=== PATIENT | male | born 1975 | race Caucasian/White ===

== ENCOUNTER 2023-07-25 16:48 | Emergency (ER) | payer BC, SELFPAY ==
[2023-07-25 16:56] VITALS: BP 159/94; PULSE 76; RESP 18; TEMP 36.5; O2SAT 97; BMI 27.0
--- NOTE | 2023-07-25 19:02 | ED_ITS ---
HPI - Abdominal Pain General Chief Complaint: Abdominal Pain Stated Complaint: Severe abdominal cramps all day-IBS Time Seen by Provider: 07/25/23 19:00 History of Present Illness HPI narrative: This 47-year-old male comes in reporting worsening diarrhea and abdominal cramping. He has had a history of irritable bowel syndrome but states that symptoms have become progressively worse over the past couple months. He has frequent diarrhea with severe cramps of abdominal pain. He states on occasion he has noted some blood in the diarrhea. He does not report any fevers. His pain is not constant. Currently he does not have much for pain. He did present to a gastroenterology clinic and had a colonoscopy done about 2 months ago. He has not heard any results from this but states that they did remove a couple polyps. He is not on any medications. He states that he is much worse these past couple days and has diarrhea with taking any kind of food. He does not report any nausea or vomiting. Related Data Previous Rx's Medication Instructions Recorded dicyclomine 20 mg tablet 20 mg PO QID #120 tabs 07/25/23 Allergies Allergy/AdvReac Type Severity Reaction Status Date / Time No Known Drug Allergies Allergy Verified 07/25/23 16:56 Review of Systems Status of ROS Reports: 10 or more systems reviewed and unremarkable except as noted in History and below Narrative Constitutional: No fevers, no weight gain or loss. Eyes: No discharge. No vision changes. HENT: No congestion, no sore throat, no ear pain. Cardiovascular: No chest pain, no palpitations. Respiratory: No shortness of breath, no wheezes, no cough. Gastrointestinal: Crampy abdominal pain with frequent diarrhea. Genitourinary: No dysuria, no hematuria. Musculoskeletal: Normal range of motion. Skin: No rashes, no pruritis. Neurological: No dizziness, weakness, sensory change, speech change. Endo/Heme/Allergies: No bruising or bleeding. No polydipsia. Pysch: no suicidality, no anxiety, no insomnia. All other systems reviewed and are negative. PFSH PFSH Social History Non-prescribed substance use: denies use Exam Narrative: Exam Narrative: Constitutional: Well-developed, well-nourished, no acute distress. HEENT: Normocephalic, atraumatic. Neck: Normal range of motion. Nontender. Supple. Heart: Regular. No murmurs. Normal rate. Intact distal pulses. Lungs: Clear to auscultation. No chest discomfort. No wheezes, rhonchi, or rales. Abdomen: Normal bowel sounds. Nontender. No rebound tenderness. Genitalia: Deferred. Back: No midline tenderness. Normal range of motion. Extremities: Normal range of motion. No injury. Skin: Intact. No rash. Warm. No erythema or pallor. Neurologic: No altered sensation. No weakness. Alert and oriented. Psychiatric: No suicidality. No anxiety or depression. No insomnia. Nursing notes and vitals signs are reviewed. Const: Vital Signs, click to edit/add: Vital Signs - 24 hr 07/25/23 16:56 07/25/23 19:42 07/25/23 20:35 Temperature 97.7 F Pulse Rate [Right Pulse Oximeter] 76 76 64 Respiratory Rate 18 18 18 Blood Pressure [Ri ght Upper Arm] 159/94 H 122/73 129/95 H Pulse Oximetry 97 100 95 Oxygen Delivery Me thod Room Air Room Air Room Air Course Vital Signs Vital signs: Initial Vital Signs Temperature 97.7 F 07/25/23 16:56 Temperature Source Temporal Artery Scan 07/25/23 16:56 Pulse Rate 76 07/25/23 16:56 Respiratory Rate 18 07/25/23 16:56 Blood Pressure 159/94 H 07/25/23 16:56 Blood Pressure Mean 115 H 07/25/23 16:56 Blood Pressure Position Sitting 07/25/23 16:56 Pulse Oximetry 97 07/25/23 16:56 Oxygen Delivery Method Room Air 07/25/23 16:56 Vital Signs Temperature 97.7 F 07/25/23 16:56 Pulse Rate 76 07/25/23 16:56 Respiratory Rate 18 07/25/23 16:56 Blood Pressure 159/94 H 07/25/23 16:56 Pulse Oximetry 97 07/25/23 16:56 Oxygen Delivery Method Room Air 07/25/23 16:56 Temperature 97.7 F 07/25/23 16:56 Pulse Rate 64 07/25/23 20:35 Respiratory Rate 18 07/25/23 20:35 Blood Pressure 129/95 H 07/25/23 20:35 Pulse Oximetry 95 07/25/23 20:35 Oxygen Delivery Method Room Air 07/25/23 20:35 MDM - Abdominal Pain MDM Narrative Medical decision making narrative: This patient comes in with abdominal pain and frequent diarrhea as described above. He does have a history of irritable bowel syndrome and states that these symptoms are similar but occurring much more frequently and with more intensity. He is not on any medications to treat this. He denies having any fevers or signs of infection. An IV is established and labs are acquired. These returned with normal findings. Additionally a CT scan of the abdomen pelvis returns with no significant findings to explain his symptoms. He did receive IV dose Toradol 30 mg and a L of normal saline. This helped him feel better. His symptoms are likely due to irritable bowel syndrome. I did prescribe dicyclomine 20 mg 4 times daily to help with his diarrhea. He also received a prescription for Toradol from the [facility]. He has seen a novelties sales representative and is advised to follow-up for ongoing management. Lab Data Labs: Lab Results 07/25/23 Range/Units 19:25 WBC 7.43 (4.50-11.00) K/uL RBC 5.17 (4.30-5.90) m/uL Hgb 14.5 (13.5-17.5) gm/dL Hct 44.7 (37.0-53.0) % MCV 87 (80-100) fL MCH 28 (26-34) pg MCHC 32 (32-36) gm/dL RDW Coeff of Rosalee 13.3 (11.5-15.5) % Plt Count 279 (140-440) K/uL Neut % (Auto) 69.4 (42.0-72.0) % Lymph % (Auto) 21.8 (20-44) % [place] % (Auto) 6.9 (0.0-11.0) % Eos % (Auto) 1.1 (0.0-7.0) % Baso % (Auto) 0.5 (0.0-3.0) % Neut # (Auto) 5.16 (1.7-7.0) K/uL Lymph # (Auto) 1.62 (0.90-2.90) K/uL [place] # (Auto) 0.50 (0.00-0.90) K/UL Eos # (Auto) 0.08 (0.00-0.50) K/uL Baso # (Auto) 0.04 (0.00-0.30) K/uL Abs Immat Gran (auto) 0.02 (0.00-0.30) K/uL Imm/Tot Granulo (auto) 0.3 % ESR 7 (2-15) mm/hr Sodium 140 (135-149) mmol/L Potassium 3.5 L (3.6-5.1) mmol/L Chloride 104 (96-114) mmol/L Carbon Dioxide 27 (20-32) mmol/L Anion Gap 9 (7-15) mEq/L BUN 10 (5-24) mg/dL Creatinine 0.8 (0.5-1.5) mg/dL Estimated Creat Clear 104.12 Estimated GFR 111 ml/min Glucose 103 (60-115) mg/dL Calcium 9.0 (8.4-10.6) mg/dL Total Bilirubin 1.3 (0.1-1.5) mg/dL Direct Bilirubin 0.0 (0.0-0.5) mg/dL AST 37 H (12-35) U/L ALT 47 (4-50) U/L Alkaline Phosphatase 77 (40-150) U/L C-Reactive Protein 0.6 (0.5-1.0) mg/dL Total Protein 7.4 (6.0-8.3) g/dL Albumin 4.5 (3.3-5.0) g/dL Imaging Data CT scan - abdomen: Radiologist's impression: 1. No acute findings in the abdomen or pelvis. 2. Moderate amount of formed stool in the proximal colon. No signs of bowel obstruction or inflammation. Discharge Plan Discharge Clinical Impression: IBS (irritable bowel syndrome) Patient Disposition: Home, Self-Care Condition: Stable Additional Instructions: Take medication as prescribed. Increase diet and liquids as tolerated. Follow up with MD, Gastroenterology Clinic, as scheduled or needed. Return if worsening. Prescriptions: New dicyclomine 20 mg tablet 20 mg PO QID Qty: 120 2RF Follow Up/Referrals: Provider,Not a Local [Primary Care Provider] - Stand Alone Forms: [employer] Info Instructions
--- NOTE | 2023-07-25 19:12 | CRLHL7_ITS ---
For Patients: As a result of the Century Cures Act, medical imaging exams and procedure reports are released immediately into your electronic medical record. You may view this report before your referring provider. If you have questions, please contact your health care provider. INDICATION: Abdominal pain, diarrhea. TECHNIQUE: CT of the abdomen and pelvis with 82 cc Isovue 370 IV contrast. Coronal and sagittal reconstructions. COMPARISON: None. FINDINGS: Probable hepatic steatosis. There is a subcentimeter lesion in the right hepatic dome with peripheral nodular enhancing foci compatible with a benign hemangioma (series 2, image 13). The gallbladder, spleen, pancreas, and adrenal glands are negative. No biliary dilation. Portal veins appear patent. Symmetric enhancement of the kidneys. No hydronephrosis or ureteral dilation. No obstructing urinary calculi identified. The bladder is normal in appearance. Nonenlarged prostate gland. No small bowel dilation. Moderate amount of formed stool in the proximal colon. The distal colon is decompressed. No signs of bowel inflammation. Negative appendix. No intraperitoneal free air or fluid. No lymphadenopathy. Tiny fat containing umbilical hernia. Elevation of the right hemidiaphragm. Mild bibasilar atelectasis. Mild degenerative changes of the spine. Schmorl`s node in the superior endplate of L1. IMPRESSION: 1. No acute findings in the abdomen or pelvis. 2. Moderate amount of formed stool in the proximal colon. No signs of bowel obstruction or inflammation. Please note that all CT scans at this facility use dose modulation, iterative reconstruction, and/or weight-based dosing when appropriate to reduce radiation dose to as low as reasonably achievable. Dictated by Akiko Pastor MD @ 07/25/2023 8:48:45 PM (Electronically Signed)
[2023-07-25 19:29] LABS: Basophils Absolute Auto 0.04 K/uL (0.00-0.30); Basophils Percent Auto 0.5 % (0.0-3.0); Eosinophils Absolute Auto 0.08 K/uL (0.00-0.50); Eosinophils Percent Auto 1.1 % (0.0-7.0); Hematocrit 44.7 % (37.0-53.0); Hemoglobin* 14.5 gm/dL (13.5-17.5); Immature Granulocytes Abs Auto 0.02 K/uL (0.00-0.30); Immature Granulocytes Pct Auto 0.3 %; Lymphocytes Absolute Auto 1.62 K/uL (0.90-2.90); Lymphocytes Percent Auto 21.8 % (20-44); Mean Corpuscular HGB Conc 32 gm/dL (32-36); Mean Corpuscular Hemoglobin 28 pg (26-34); Mean Corpuscular Volume 87 fL (80-100); Monocytes Percent Auto 6.9 % (0.0-11.0); Neutrophils Absolute Auto 5.16 K/uL (1.7-7.0); Neutrophils Percent Auto 69.4 % (42.0-72.0); Platelet Count* 279 K/uL (140-440); RDW Coefficient of Variation % 13.3 % (11.5-15.5); Red Blood Count 5.17 m/uL (4.30-5.90); White Blood Count* 7.43 K/uL (4.50-11.00)
[2023-07-25 19:30] LABS: Slide Review Reflex No
[2023-07-25 19:42] VITALS: BP 122/73; PULSE 76; RESP 18; O2SAT 100
[2023-07-25 19:44] LABS: Albumin* 4.5 g/dL (3.3-5.0); Chloride* 104 mmol/L (96-114)
[2023-07-25 19:45] LABS: Potassium* 3.5 mmol/L (3.6-5.1); Sodium* 140 mmol/L (135-149)
[2023-07-25 19:47] LABS: Creatinine* 0.8 mg/dL (0.5-1.5); Est. Creatinine Clearance* 104.12; Estimated Glomerular Filt Rate 111 ml/min
[2023-07-25 19:48] LABS: Alanine Aminotransferase* 47 U/L (4-50); Alkaline Phosphatase* 77 U/L (40-150); Anion Gap 9 mEq/L (7-15); Aspartate Amino Transferase* 37 U/L (12-35); Bilirubin Total* 1.3 mg/dL (0.1-1.5); Blood Urea Nitrogen* 10 mg/dL (5-24); Carbon Dioxide* 27 mmol/L (20-32); Glucose* 103 mg/dL (60-115); Total Protein* 7.4 g/dL (6.0-8.3)
[2023-07-25 19:50] LABS: C Reactive Protein* 0.6 mg/dL (0.5-1.0)
[2023-07-25 20:21] LABS: Erythrocyte SedimentationRate* 7 mm/hr (2-15)
[2023-07-25 20:35] VITALS: BP 129/95; PULSE 64; RESP 18; O2SAT 95
== END 2023-07-25 21:46 | disposition home or self-care (01) ==
PROVIDERS: Emergency Provider Emergency Medicine Emergency Medical Services
DX: K58.9 Irritable bowel syndrome, unspecified (principal)
CPT/HCPCS: 36415; 74177; 80048; 80076; 85025; 85651; 86140; 96374; 99284; 99285; Q9967

== ENCOUNTER 2025-06-23 07:14 | Emergency (ER) | payer BC, SELFPAY ==
[2025-06-23] VITALS (10 sets, daily range): BP systolic 144–192; BP diastolic 90–98; PULSE 53–64; RESP 14–23; TEMP 35.8; O2SAT 96–100; BMI 26.6
--- NOTE | 2025-06-23 07:39 | CRLHL7_ITS ---
For Patients: As a result of the Century Cures Act, medical imaging exams and procedure reports are released immediately into your electronic medical record. You may view this report before your referring provider. If you have questions, please contact your health care provider. Indication: Chest pain Technique: Chest 2 views Comparison: Chest x-ray 06/13/2010 Findings/Impression: Cardiovascular and mediastinum: Heart size and vasculature are normal in caliber and appearance. Mediastinum is within normal limits. Lungs and pleural spaces: Lungs are clear. No sign of infiltrate or mass. No sign of pleural effusion. No pneumothorax. Bones and soft tissues: No significant findings. Dictated by Bruno Santoyo MD @ 06/23/2025 8:24:50 AM (Electronically Signed)
--- NOTE | 2025-06-23 07:42 | ED_ITS ---
HPI - General Adult General Date Seen: 06/23/25 <nAtonio Childers MD - Last Filed: 06/23/25 10:55> Chief complaint: Chest Pain <Nirali Patino MD - Last Filed: 06/29/25 23:58> Stated complaint: chest pain <Nirali Patino MD - Last Filed: 06/29/25 23:58> Time Seen by Provider: 06/23/25 07:27 <Nirali Patino MD - Last Filed: 06/29/25 23:58> Source: patient <Nirali Patino MD - Last Filed: 06/29/25 23:58> Mode of arrival: ambulatory <Nirali Patino MD - Last Filed: 06/29/25 23:58> Limitations: no limitations <Nirali Patino MD - Last Filed: 06/29/25 23:58> History of Present Illness HPI narrative: 49-year-old male presents to the emergency department with left lateral lower rib pain, anterior but does radiate laterally for the past hour. No trauma or injury. No shortness of breath or cough but does have worsening pain with deep breath. No recent fever. No dysuria. Pain seems to come in waves. No nausea or vomiting. No GI changes. No bloody stools. No history of kidney stones. Reports that he had a similar pain several months ago that lasted just a couple of minutes and resolved without complication, was not investigated further. 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 It sounds like he was not recommended to have follow-up echoes or cardiology evaluation for this. He does not typically have chest pain or other limiting problems. No history of DVT or PE. Reports that he had some mild achiness in his right thigh last night and took a couple of Tylenol, resolved without complication. No swelling has been noted. No prior stress test or recent echo. Nonsmoker. Did not try any interventions prior to coming to ED. Past medical history notable for that cardiac surgery as an , denies other long-term medications or long-term medical problems. No other surgeries. No known drug allergies. ROS is notable for the chest wall symptoms as described above, otherwise denies times 12 systems. <Nirali Patino MD - Last Filed: 06/29/25 23:58> Related Data Home medications: Home Medications ?Medication ?Instructions ?Recorded ?Confirmed No Known Home Medications 06/23/2506/03 <Nirali Patino MD - Last Filed: 06/29/25 23:58> Allergies/adverse reactions: Allergies Allergy/AdvReac Type Severity Reaction Status Date / Time No Known Drug Allergies Allergy Verified 07/25/23 16:56 <Nirali Patino MD - Last Filed: 06/29/25 23:58> PFSH PFSH Social History: Social History Smoking Status: Never smoker Non-prescribed substance use: denies use <Nirali Patino MD - Last Filed: 06/29/25 23:58> Exam Const: Vital Signs, click to edit/add: Vital Signs - 24 hr 06/23/25 07:20 06/23/25 07:30 06/23/25 07:45 Temperature 96.4 F L Pulse Rate 63 Pulse Rate [Pulse Oximeter] 60 Respiratory Rate 18 22 Blood Pressure Blood Pressure [Le ft Upper Arm] 192/98 H 157/90 H Pulse Oximetry 100 97 Oxygen Delivery Me thod Room Air 06/23/25 08:01 06/23/25 08:31 06/23/25 09:00 Temperature Pulse Rate 64 57 L Pulse Rate [Pulse Oximeter] Respiratory Rate 15 21 20 Blood Pressure 161/96 H 147/97 H Blood Pressure [Le ft Upper Arm] Pulse Oximetry 96 97 Oxygen Delivery Me thod 06/23/25 09:01 06/23/25 09:15 06/23/25 09:35 Temperature Pulse Rate 54 L 53 L 54 L Pulse Rate [Pulse Oximeter] Respiratory Rate 23 14 Blood Pressure 144/92 H Blood Pressure [Le ft Upper Arm] Pulse Oximetry 97 96 97 Oxygen Delivery Me thod 06/23/25 10:00 Temperature Pulse Rate 53 L Pulse Rate [Pulse Oximeter] Respiratory Rate 19 Blood Pressure Blood Pressure [Le ft Upper Arm] Pulse Oximetry 97 Oxygen Delivery Me thod <Nirali Patino MD - Last Filed: 06/29/25 23:58> Vital Signs, click to edit/add: Vital Signs - 24 hr 06/23/25 07:20 06/23/25 07:30 06/23/25 07:45 Temperature 96.4 F L Pulse Rate 63 Pulse Rate [Pulse Oximeter] 60 Respiratory Rate 18 22 Blood Pressure Blood Pressure [Le ft Upper Arm] 192/98 H 157/90 H Pulse Oximetry 100 97 Oxygen Delivery Me thod Room Air 06/23/25 08:01 06/23/25 08:31 06/23/25 09:00 Temperature Pulse Rate 64 57 L Pulse Rate [Pulse Oximeter] Respiratory Rate 15 21 20 Blood Pressure 161/96 H 147/97 H Blood Pressure [Le ft Upper Arm] Pulse Oximetry 96 97 Oxygen Delivery Me thod 06/23/25 09:01 06/23/25 09:15 06/23/25 09:35 Temperature Pulse Rate 54 L 53 L 54 L Pulse Rate [Pulse Oximeter] Respiratory Rate 23 14 Blood Pressure 144/92 H Blood Pressure [Le ft Upper Arm] Pulse Oximetry 97 96 97 Oxygen Delivery Me thod 06/23/25 10:00 Temperature Pulse Rate 53 L Pulse Rate [Pulse Oximeter] Respiratory Rate 19 Blood Pressure Blood Pressure [Le ft Upper Arm] Pulse Oximetry 97 Oxygen Delivery Me thod <Antonio Childers MD - Last Filed: 06/23/25 10:55> Documenting provider has reviewed patient's vital signs: yes <Nirali Patino MD - Last Filed: 06/29/25 23:58> Common normals: no apparent distress and alert <Nirali Patino MD - Last Filed: 06/29/25 23:58> General appearance: cooperative, comfortable and well kempt <Nirali Patino MD - Last Filed: 06/29/25 23:58> HENMT: Common normals: normocephalic, moist oral mucous membranes and oropharynx normal <Nirali Patino MD - Last Filed: 06/29/25 23:58> Head and scalp: normocephalic <Nirali Patino MD - Last Filed: 06/29/25 23:58> Face and sinus: normal facial exam <Nirali Patino MD - Last Filed: 06/29/25 23:58> Mouth: oral and palatal mucosa normal <MD Gulshan Estrada Last Filed: 06/29/25 23:58> Eye: Common normals: conjunctivae normal <MD Gulshan Estrada Last Filed: 06/29/25 23:58> General eye: normal appearance of both eyes <MD Gulshan Estrada Last Filed: 06/29/25 23:58> Conjunctiva: conjunctiva(e) normal <MD Gulshan Estrada Last Filed: 06/29/25 23:58> Neck & C-Spine: Common normals: full ROM and no lymphadenopathy <MD Gulshan Estrada Last Filed: 06/29/25 23:58> Chest: Common normals: inspection of chest normal and palpation of chest norm al <MD Gulshan Estrada Last Filed: 06/29/25 23:58> Resp: Common normals: normal respiratory effort, no use of accessory muscles and clear to auscultation bilaterally <MD Gulshan Estrada Last Filed: 06/29/25 23:58> Effort & inspection: able to speak in complete sentences <MD Gulshan Estrada Last Filed: 06/29/25 23:58> Auscultation: clear to auscultation bilaterally <MD Gulshan Estrada Last Filed: 06/29/25 23:58> Cardio: Common normals: regular rate, regular rhythm, S1 normal heart sound, S2 normal heart sound and no murmurs <MD Gulshan Estrada Last Filed: 06/29/25 23:58> Rate: regular rate <MD Gulshan Estrada Last Filed: 06/29/25 23:58> Rhythm: regular rhythm <MD Gulshan Estrada Last Filed: 06/29/25 23:58> Heart sounds: S1 normal and S2 normal <MD Gulshan Estrada Last Filed: 06/29/25 23:58> GI: Common normals: Normal to inspection, nondistended, normoactive bowel sounds present, soft to palpation, non-tender, no hepatosplenomegaly and no masses <MD Gulshan Estrada Last Filed: 06/29/25 23:58> Palpation: soft and no hepatosplenomegaly <MD Gulshan Estrada Last Filed: 06/29/25 23:58> : Common normals: no CVA tenderness <MD Gulshan Estrada Last Filed: 06/29/25 23:58> Bladder/kidney exam: no CVA tenderness <MD Gulshan Estrada Last Filed: 06/29/25 23:58> Back & Pelvis: Common normals: no CVA tenderness and thoracic and lumbar spine normal to inspection <MD Gulshan Estrada Last Filed: 06/29/25 23:58> Extremity: Common normals: normal to inspection, normal capillary refill and no pedal edema <MD Gulshan Estrada Last Filed: 06/29/25 23:58> Neuro: Common normals: moves all extremities <MD Gulshan Estrada Last Filed: 06/29/25 23:58> Sensorium/orientation: alert <MD Gulshan Estrada Last Filed: 06/29/25 23:58> Speech: speech normal <MD Gulshan Estrada Last Filed: 06/29/25 23:58> Motor exam: strength 5/5 throughout <MD Gulshan Estrada Last Filed: 06/29/25 23:58> Psych: Appearance: well kempt <MD Gulshan Estrada Last Filed: 06/29/25 23:58> Attitude: engaged <MD Gulshan Estrada Last Filed: 06/29/25 23:58> Activity/motor behavior: appropriate eye contact <MD Gulshan Estrada Last Filed: 06/29/25 23:58> Insight: insight good <MD Gulshan Estrada Last Filed: 06/29/25 23:58> Judgement: judgment good <MD Gulshan Estrada Last Filed: 06/29/25 23:58> Skin: Common normals: no rashes or lesions noted <Nirali Patino MD - Last Filed: 06/29/25 23:58> General skin exam: no rashes or lesions noted <Nirali Patino MD - Last Filed: 06/29/25 23:58> Course Course ED Course: 49-year-old male with left-sided chest pain. Initial vitals show some mild hypertension but otherwise stable. Differential diagnosis including acute coronary syndrome, pulmonary embolism, heart failure, pleurisy, pneumonia, kidney stone or intra-abdominal pathology, amongst others. Will place on color television console monitor, obtain urine sample, EKG. Typical cardiac labs including a D- dimer, chest x-ray. No initial treatments. Await findings. Will be handing over care to oncoming day shift partner. <Nirali Patino MD - Last Filed: 06/29/25 23:58> Reevaluation(s) Time of Reevaluation #1: 10:53 <Antonio Childers MD - Last Filed: 06/23/25 10:55> Reevaluation #1: Chest pain is gone away, I reviewed the the history, physical examination, patient feels good, EKG had noted his troponins x2 are normal D-dimer was normal. He says he had this in the past, he does not get with exercise tolerance, but given his age and history a stress echo is ordered, he will remain on 81 mg of aspirin until the stress echo was done. He will follow-up with his doctor within the week, he reports he understands this, went over worrisome signs and symptoms when he should come back to the ER, his is also part of this conversation. <Antonio Childers MD - Last Filed: 06/23/25 10:55> Vital Signs Vital signs: Initial Vital Signs Temperature 96.4 F L 06/23/25 07:20 Temperature Source Temporal Artery Scan 06/23/25 07:20 Pulse Rate 60 06/23/25 07:20 Respiratory Rate 18 06/23/25 07:20 Blood Pressure 192/98 H 06/23/25 07:20 Blood Pressure Mean 129 H 06/23/25 07:20 Blood Pressure Position Supine 06/23/25 07:20 Pulse Oximetry 100 06/23/25 07:20 Oxygen Delivery Method Room Air 06/23/25 07:20 Vital Signs Temperature 96.4 F L 06/23/25 07:20 Pulse Rate 60 06/23/25 07:20 Respiratory Rate 18 06/23/25 07:20 Blood Pressure 192/98 H 06/23/25 07:20 Pulse Oximetry 100 06/23/25 07:20 Oxygen Delivery Method Room Air 06/23/25 07:20 Temperature 96.4 F L 06/23/25 07:20 Pulse Rate 53 L 06/23/25 10:00 Respiratory Rate 19 06/23/25 10:00 Blood Pressure 144/92 H 06/23/25 09:01 Pulse Oximetry 97 06/23/25 10:00 Oxygen Delivery Method Room Air 06/23/25 07:20 <Nirali Patino MD - Last Filed: 06/29/25 23:58> Initial Vital Signs Temperature 96.4 F L 06/23/25 07:20 Temperature Source Temporal Artery Scan 06/23/25 07:20 Pulse Rate 60 06/23/25 07:20 Respiratory Rate 18 06/23/25 07:20 Blood Pressure 192/98 H 06/23/25 07:20 Blood Pressure Mean 129 H 06/23/25 07:20 Blood Pressure Position Supine 06/23/25 07:20 Pulse Oximetry 100 06/23/25 07:20 Oxygen Delivery Method Room Air 06/23/25 07:20 Vital Signs Temperature 96.4 F L 06/23/25 07:20 Pulse Rate 60 06/23/25 07:20 Respiratory Rate 18 06/23/25 07:20 Blood Pressure 192/98 H 06/23/25 07:20 Pulse Oximetry 100 06/23/25 07:20 Oxygen Delivery Method Room Air 06/23/25 07:20 Temperature 96.4 F L 06/23/25 07:20 Pulse Rate 53 L 06/23/25 10:00 Respiratory Rate 19 06/23/25 10:00 Blood Pressure 144/92 H 06/23/25 09:01 Pulse Oximetry 97 06/23/25 10:00 Oxygen Delivery Method Room Air 06/23/25 07:20 <Antonio Childers MD - Last Filed: 06/23/25 10:55> Medical Decision Making MDM Narrative Medical decision making narrative: During the evaluation of this patient I considered multiple differential diagnosis is. The life-threatening differential diagnosis include coronary disease/PR, pulmonary embolism, pneumothorax, pneumonia, and aortic dissection. Other differential diagnosis included but were not limited to pericarditis, myocarditis, chest wall pain, GERD, esophageal rupture, rib fracture contusion, pleurisy, as well as other etiologies. <Antonio Childers MD - Last Filed: 06/23/25 10:55> Medical Records Medical records reviewed: Yes I reviewed the patient's medical records <Antonio Childers MD - Last Filed: 06/23/25 10:55> Lab Data Lab results reviewed: Yes I reviewed the patient's lab results <Antonio Childers MD - Last Filed: 06/23/25 10:55> Labs: Lab Results 06/23/25 06/23/25 06/23/25 Range/Units 07:30 07:39 09:30 WBC 6.85 (4.50-11.00) K/uL RBC 5.36 (4.30-5.90) m/uL Hgb 15.2 (13.5-17.5) gm/dL Hct 45.7 (37.0-53.0) % MCV 85 (80-100) fL MCH 28 (26-34) pg MCHC 33 (32-36) gm/dL RDW Coeff of [place] 13.3 (11.5-15.5) % Plt Count 277 (140-440) K/uL Neut % (Auto) 61.8 (42.0-72.0) % Lymph % (Auto) 26.3 (20-44) % [place] % (Auto) 9.1 (0.0-11.0) % Eos % (Auto) 2.0 (0.0-7.0) % Baso % (Auto) 0.7 (0.0-3.0) % Neut # (Auto) 4.23 (1.7-7.0) K/uL Lymph # (Auto) 1.80 (0.90-2.90) K/uL [place] # (Auto) 0.60 (0.00-0.90) K/UL Eos # (Auto) 0.14 (0.00-0.50) K/uL Baso # (Auto) 0.05 (0.00-0.30) K/uL Abs Immat Gran (auto) 0.01 (0.00-0.30) K/uL Imm/Tot Granulo (auto) 0.1 % D-Dimer Quant (PE/DVT) 0.11 (0.00-0.50) ug/ml Sodium 139 (135-149) mmol/L Potassium 3.8 (3.6-5.1) mmol/L Chloride 107 (96-114) mmol/L Carbon Dioxide 25 (20-32) mmol/L Anion Gap 7 (7-15) mEq/L BUN 14 (5-24) mg/dL Creatinine 0.9 (0.5-1.5) mg/dL Estimated Creat Clear 90.58 Estimated GFR 105 ml/min Glucose 136 H (60-115) mg/dL Calcium 9.2 (8.4-10.6) mg/dL Total Bilirubin 0.8 (0.1-1.5) mg/dL AST 27 (12-35) U/L ALT 37 (4-50) U/L Alkaline Phosphatase 78 (40-150) U/L Troponin I < 0.01 (0.01-0.04) ng/mL NT-Pro-B Natriuret Pep < 20 (See Note) pg/mL Total Protein 7.0 (6.0-8.3) g/dL Albumin 4.2 (3.3-5.0) g/dL Lipase 141 (23-300) U/L Urine Color Yellow (Yellow) Urine Appearance Clear (Clear) Urine pH 6.5 (5.0-8.5) Ur Specific [place] 1.025 (1.000-1.030) Urine Protein 1+ A (Negative) Urine Glucose (UA) Negative (Negative) Urine Ketones 1+ A (Negative) Urine Blood Trace-intact A (Negative) Urine Nitrite Negative (Negative) Urine Bilirubin Negative (Negative) Urine Urobilinogen 1.0 (0.2-1.0) Ur Leukocyte Esterase Negative (Negative) Urine RBC 2-5 A (0-2) Urine WBC 0-2 (0-5) Ur Squamous Epith Cells Few (None-Few) Urine Bacteria None (None) Urine Mucus Moderate A (None) POC Troponin I 0.00 L 0.00 L (0.01-0.04) ng/ml <Nirali Patino MD - Last Filed: 06/29/25 23:58> Lab Results 06/23/25 06/23/25 06/23/25 Range/Units 07:30 07:39 09:30 WBC 6.85 (4.50-11.00) K/uL RBC 5.36 (4.30-5.90) m/uL Hgb 15.2 (13.5-17.5) gm/dL Hct 45.7 (37.0-53.0) % MCV 85 (80-100) fL MCH 28 (26-34) pg MCHC 33 (32-36) gm/dL RDW Coeff of [place] 13.3 (11.5-15.5) % Plt Count 277 (140-440) K/uL Neut % (Auto) 61.8 (42.0-72.0) % Lymph % (Auto) 26.3 (20-44) % [place] % (Auto) 9.1 (0.0-11.0) % Eos % (Auto) 2.0 (0.0-7.0) % Baso % (Auto) 0.7 (0.0-3.0) % Neut # (Auto) 4.23 (1.7-7.0) K/uL Lymph # (Auto) 1.80 (0.90-2.90) K/uL [place] # (Auto) 0.60 (0.00-0.90) K/UL Eos # (Auto) 0.14 (0.00-0.50) K/uL Baso # (Auto) 0.05 (0.00-0.30) K/uL Abs Immat Gran (auto) 0.01 (0.00-0.30) K/uL Imm/Tot Granulo (auto) 0.1 % D-Dimer Quant (PE/DVT) 0.11 (0.00-0.50) ug/ml Sodium 139 (135-149) mmol/L Potassium 3.8 (3.6-5.1) mmol/L Chloride 107 (96-114) mmol/L Carbon Dioxide 25 (20-32) mmol/L Anion Gap 7 (7-15) mEq/L BUN 14 (5-24) mg/dL Creatinine 0.9 (0.5-1.5) mg/dL Estimated Creat Clear 90.58 Estimated GFR 105 ml/min Glucose 136 H (60-115) mg/dL Calcium 9.2 (8.4-10.6) mg/dL Total Bilirubin 0.8 (0.1-1.5) mg/dL AST 27 (12-35) U/L ALT 37 (4-50) U/L Alkaline Phosphatase 78 (40-150) U/L Troponin I < 0.01 (0.01-0.04) ng/mL NT-Pro-B Natriuret Pep < 20 (See Note) pg/mL Total Protein 7.0 (6.0-8.3) g/dL Albumin 4.2 (3.3-5.0) g/dL Lipase 141 (23-300) U/L Urine Color Yellow (Yellow) Urine Appearance Clear (Clear) Urine pH 6.5 (5.0-8.5) Ur Specific [place] 1.025 (1.000-1.030) Urine Protein 1+ A (Negative) Urine Glucose (UA) Negative (Negative) Urine Ketones 1+ A (Negative) Urine Blood Trace-intact A (Negative) Urine Nitrite Negative (Negative) Urine Bilirubin Negative (Negative) Urine Urobilinogen 1.0 (0.2-1.0) Ur Leukocyte Esterase Negative (Negative) Urine RBC 2-5 A (0-2) Urine WBC 0-2 (0-5) Ur Squamous Epith Cells Few (None-Few) Urine Bacteria None (None) Urine Mucus Moderate A (None) POC Troponin I 0.00 L 0.00 L (0.01-0.04) ng/ml <Antonio Childers MD - Last Filed: 06/23/25 10:55> Imaging Data Chest x-ray: Attestation: I have reviewed the pertinent imaging results. <Antonio Childers MD - Last Filed: 06/23/25 10:55> My impression: Negative <Antonio Childers MD - Last Filed: 06/23/25 10:55> Radiologist's impression: [place] [address] Diagnostic Imaging Report Patient: Jhonny Riddle MR#: [id number] : 1975 Acct:[id number] Loc: ED Service Date: 06/23/[address]: Ordering Physician: Nirali Patino M.D. Date of Service: 06/23/25 Procedure(s): XR chest 2V Accession Number(s): [id number] cc: Provider,Not a Local; Nirali Patino M.D.~ For Patients: As a result of the Cures Act, medical imaging exams and procedure reports are released immediately into your electronic medical record. You may view this report before your referring provider. If you have questions, please contact your health care provider. Indication: Chest pain Technique: Chest 2 views Comparison: Chest x-ray 06/13/2010 Findings/Impression: Cardiovascular and mediastinum: Heart size and vasculature are normal in caliber and appearance. Mediastinum is within normal limits. Lungs and pleural spaces: Lungs are clear. No sign of infiltrate or mass. No sign of pleural effusion. No pneumothorax. Bones and soft tissues: No significant findings. Dictated by Bruno Santoyo MD @ 06/23/2025 8:24:50 AM (Electronically Signed) <Antonio Childers MD - Last Filed: 06/23/25 10:55> ECG Data Attestation: I personally reviewed and interpreted this ECG as follows: <Nirali Patino MD - Last Filed: 06/29/25 23:58> Prior ECG tracings: not available for review <Nirali Patino MD - Last Filed: 06/29/25 23:58> Interpretation: Sinus bradycardia with a rate of 55. There is a slight left axis deviation. Intervals are otherwise normal. No significant ST or T-wave abnormalities that was suggest ischemia. No prior EKG for comparison. <Nirali Patino MD - Last Filed: 06/29/25 23:58> Discharge Plan Discharge Clinical Impression: Chest pain <Nirali Patino MD - Last Filed: 06/29/25 23:58> Patient Disposition: Home w/ Parent or Adult <Nirali Patino MD - Last Filed: 06/29/25 23:58> Condition: Stable <Nirali Patino MD - Last Filed: 06/29/25 23:58> Instructions: Chest Pain (ED), Chest Pain (DC), Chest Wall Pain (ED) <Nirali Patino MD - Last Filed: 06/29/25 23:58> Additional Instructions: Home rest, decreasing exercise, decreasing activity. Taking aspirin 81 mg a day. Follow-up for outpatient stress echo, follow-up with primary care within 1 week also return to ER if increasing chest pain shortness of breath or other concerns. <Nirali Patino MD - Last Filed: 06/29/25 23:58> Activity Level: Light activity <Nirali Patino MD - Last Filed: 06/29/25 23:58> Light activity <Antonio Childers MD - Last Filed: 06/23/25 10:55> Prescriptions: No Action No Known Home Medications <Nirali Patino MD - Last Filed: 06/29/25 23:58> Follow Up/Referrals: Provider,Not a Local [Primary Care Provider, Family Practice] <Nirali Patino MD - Last Filed: 06/29/25 23:58> Stand Alone Forms: MyHealth Info Instructions <Nirali Patino MD - Last Filed: 06/29/25 23:58>
[2025-06-23 07:48] LABS: Appearance Urine Clear (Clear)
[2025-06-23 07:50] LABS: Troponin, Point-of-Care* 0.00 ng/ml (0.01-0.04)
[2025-06-23 07:51] LABS: Hematocrit* 45.7 % (37.0-53.0); Hemoglobin* 15.2 gm/dL (13.5-17.5); Immature Granulocytes Abs Auto 0.01 K/uL (0.00-0.30); Immature Granulocytes Pct Auto 0.1 %; Lymphocytes Absolute Auto 1.80 K/uL (0.90-2.90); Mean Corpuscular HGB Conc 33 gm/dL (32-36); Mean Corpuscular Hemoglobin 28 pg (26-34); Mean Corpuscular Volume 85 fL (80-100); RDW Coefficient of Variation % 13.3 % (11.5-15.5); Red Blood Count* 5.36 m/uL (4.30-5.90); White Blood Count* 6.85 K/uL (4.50-11.00)
[2025-06-23 07:54] LABS: Slide Review Reflex No
--- OUTSIDE RECORDS SUMMARY | 2025-06-23 08:01 | XMS_ITS | Clinical Summary ---
Author Organization [facility] Address [address] [place] [id number] Care Team Providers Care Contact Printer [employer] Name Role Phone Alvaro, Vandana Bhattiton Primary Care Provider Allergies No known active allergies Medications predniSONE (DELTASONE) 20 MG tablet Take two tablets (= 40mg) each day for 5 (five) days 10 tablet 07/14/2020 Active Social History Tobacco Use Types Packs/Day Years Used Date Smoking Tobacco: Never Assessed Adolescent Education Answer Date Record ed Getting School Help Needed Not on file 07/09 Sex and Gender Information Value Date Recorded Sex Assigned at Male 11/27/2021 4:12 PM [employer] Legal Sex Male 4:02 AM [employer] Gender Identity Male 11/27/2021 4:12 PM [employer] Sexual Orientation Straight 11/27/2021 4: 12 PM [employer] Last Filed Vital Signs Vital Sign Reading Time Taken Comments Blood Pressure 154/113 07/14/2020 4:58 PM CDT Pulse 79 07/14/2020 4:58 PM CDT Temperature 36.7 C (98 F) 07/14/2020 4:58 PM CDT Respiratory Rate 20 07/14/2020 4:58 PM CDT Oxygen Saturation 99% 07/14/2020 4:58 PM CDT Inhaled Oxygen Concentration - - Weight 72.1 kg (159 lb) 07/14/2020 4:58 PM CDT Height - - Body Mass Index - - Plan of Treatment Not on file Insurance BCBS OUT OF STATE Care Teams Contact Printer [employer] Relationship Specialty Start Date End Date [facility], [facility] [id number] [address] [place], [place] [id number] PCP - General 07/14/20
--- OUTSIDE RECORDS SUMMARY | 2025-06-23 08:01 | XMS_ITS | Clinical Summary ---
Author Organization [employer] [facility] Address [address] [place] [id number] Care Team Providers Care Columnist/Commentator Name Role Phone Mc Hernández MD Primary Care Provider [phone] Allergies No known active allergies Medications CPAPIndications :Obstructive sleep apnea CPAP machine for home use at pressure 5-15 cmw, nasal mask x1/3month with nasal pillows x 2/mo 1 Each 11 07/31/2023 Active Active Problems Problem Noted Date Diagnosed Date IBS (irritable bowel syndrome) 05/28/2024 Lactose intolerance 12/17/2021 ZARINA, 09/05/2017 AHI 18.4 09/12/2017 Mild episode of recurrent major depressive disor [place] 05/18/2017 Overview (05/18/2017): Reports previous episode in 2013 Routine health maintenance 06/16/2010 Overview (06/16/2010): Last cpx: 07/06, last colon: 03/10 Immunizations Immunization Administration Dates Next Due Influenza, IIV3 (Age >=3 years) 07/25/2007,08/16 Td (Age >=7 Years) 07/06/2005 Tdap 07/25/2017 Family History Medical History Relation Name Comments Heart Disease Maternal Grandfather Stroke Maternal Grandmother Heart Disease Paternal Grandfather heart attack Relation Name Status Comments Maternal Grandfather Maternal Grandmother Paternal Grandfather Social History Tobacco Use Types Packs/Day Years Used Date Smoking Tobacco: Never Passive Smoke Exposure: Never Smokeless Tobacco: Never Tobacco Cessation:Counseling Given: Not Answered Alcohol Use Standard Drinks/Week Comments Not Currently 0 (1 standard drink = 0.6 oz pur e alcohol) rare PHQ-2 Answer Date Recorded PHQ-2 TOTAL SCORE 0 05/28/2024 Social Connections Answer Date Recorded Do you often feel lonely or isolated from those around you? 0 05/28/2024 Financial Resource Strain Answer Date R ecorded Difficulty of Paying Living Expenses 3 05/28/2024 Difficulty of Paying Living Expenses Not on file 05/28/2024 Food Insecurity Answer Date Recorded Do you worry your food will run out before you are able to buy more? 1 05/28/2024 Transportation Needs Answer Date Record ed Does lack of transportation keep you from medica l appointments? 1 05/28/2024 Does lack of transportation keep you from work, meetings or getting things that you need? 1 05/28/2024 Housing Stability Answer Date Recorded What is your housing situation today? 1 05/28/2024 Utilities Answer Date Recorded Do you have trouble paying f or utilities (for example, heat, electricity, water, phone)? 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 Gender Identity Male 11/02/2021 1:21 PM [employer]UDENT SERVICES ADVISOR Sexual Orientation Straight 07/14/2020 3: 24 PM CDT Obstetrics History Last Filed Vital Signs Vital Sign Reading Time Taken Comments Blood Pressure 138/83 12/23/2024 8:11 AM CDT Pulse 70 12/23/2024 8:11 AM CDT Temperature 36.6 C (97.9 F) 12/23/2024 8:11 AM CDT Respiratory Rate 16 12/17/2021 2:38 PM CDT Oxygen Saturation 98% 12/23/2024 8:11 AM CDT Inhaled Oxygen Concentration - - Weight 75.9 kg (167 lb 6.4 oz) 12/23/2024 8:11 A M CDT Height 166.5 cm (5' 5.55) 12/23/2024 8:11 AM CD T Body Mass Index 27.39 12/23/2024 8:11 AM CDT Plan of Treatment Health Maintenance Due Date Last Done Comments Hepatitis B series for 19+ (1 of 3 - 19+ 3-dose series) 1995 Depression screening for age 12+ 05/31/2025 05/31/2024, 05/29/2024, 05/28/2024, Additional history exists COVID-19 vaccine series ( - 2023- season) 2025 Influenza Vaccine (#1) 2025 07/25/2007, 2004 BMI (ht and wt on same day) for age 18+ 12/23/2025 12/23/2024, 05/28/2024, 07/31/2023, Additional history exists Tetanus booster 07/25/2027 07/25/2017, 07/06/2005 Lipids for age 45-75 05/28/2029 05/28/2024 Colonoscopy through age 75 05/25/2033 05/25/2023 RSV vaccine for adults or (1 - 1-dose 75+ series) 2051 HIV for age 15-65 Completed 05/05/2023 Hepatitis C screening for age 18-79 Completed 05/05/2023 Pneumococcal series for age 6-49 Aged Out No longer eligible based on patient's age to complete this topic Procedures Procedure Name Priority Date/Time Associated Diagnosis Comments LIPID PANEL W REFLEX MEASURED LDL Routine 05/28/2024 9:24 AM CDT Lipid screening SCAN-COLONOSCOPY 05/25/2023 11:0 0 AM CDT LC HIV-1/O/2, 4TH GENERATION Routine 05/05/2023 11:37 AM CDT Wellness examination LC HCV ANTIBODY RFX TO QUANT PCR Routine 05/05/2023 11:37 AM CDT Wellness examination from Last 3 Months or Most Recently Relevant to Health Maintenance Results * (ABNORMAL) LIPID PANEL W REFLEX MEASURED LDL (05/28/2024 9:24 AM CDT) CHOLESTEROL,TOTAL 219(H) 100 - 199 mg/dL 05/28/2024 7:19 PM CDT [facility] Comment: Cholesterol, Total Reference Ranges Desirable <200 mg/dL Borderline 200-239 mg/dL High >=240 mg/dL TRIGLYCERIDES 328(H) <150 mg/dL 05/28/2024 7:19 PM CDT [facility] HDL CHOLESTEROL 34(L) >40 mg/dL 7:19 PM CDT [facility] NON-HDL CHOLESTEROL 185(H) <145 mg/dl 05/28/2024 7:19 PM CDT [facility] CHOL/HDL RATIO 6.44(H) <4.50 05/28/2024 7:19 PM CDT [facility] LDL CHOLESTEROL 119 <=130 mg/dL 05/28/2024 7:19 PM CDT [facility] VLDL CHOLESTEROL 66(H) <=30 mg/dL 05/28/2024 7:19 PM CDT [facility] PROVIDER ORDERED STATUS RANDOM 05/28/2024 7:19 PM CDT [facility] Blood BLOOD SPECIMEN / Unknown Venipuncture / Unknown 05/28/2024 9:24 AM CDT 05/28/2024 9:24 AM CDT us Mc Hernández MD CHEMISTRY Final Resul t [facility] [address] [place] [address], [place] * SCAN-COLONOSCOPY (05/25/2023 11:00 AM CDT) Narrative Procedure Note Suresh Jones MD - 05/25/2023 10:11 AM CDT [facility] [address], [address], [place] [address] Patient Name: Jhonny Riddle Gender: Male Exam Date: 05/25/2023 Visit Number: [id number] Age: 47 Years Date of : 1975 Attending MD: Suresh Jones MD Medical Record#: [id number] Procedure: Colonoscopy Indications: Diarrhea Screening NL 2008. No fam hx of CRC. Referring MD: Referral Self Primary MD: Mc Hernández MD Medications: Admitting Medications: 0.9% Normal Saline at TKO Intra Procedure Medications: Patient received monitored anesthesia care. Complications: No immediate complications Procedure: An examination of the heart and lungs was performed and found to be withinacceptable limits. . The patient was therefore deemed a reasonablecandidate for endoscopy and sedation. The risks and benefits of the procedure were explained to the patient.After obtaining informed consent, the patient received monitoredanesthesia care and I passed the scope without difficulty via the rectum to the ileum. The appendiceal orificeand ic valve were identified. The scope was retroflexed during theexamination The quality of the prep was poor (Duglas/Gat Double Split). This was a complete examination throughout the entire colon. Findings: Normal finding. Location - ileum (5 cm). Polyp location: descending colon. Quantity: 1. Size: 6 mm. Polyp shape:sessile. Maneuver: polypectomy was performed with a cold snare. Removal: complete. Retrieval: complete. Bleeding: none. Remainder of the exam is normal. Random biopsies were taken throughout the colon to rule out microscopiccolitis. Impression: Colorectal cancer screening Chronic diarrhea Colorectal polyp detected on colonoscopy MD impression comments: Poor prep despite history of diarrhea may suggestunderlying constipation with overflow diarrhea. Preliminary Plan: Repeat colonoscopy in 1 year Recommendation Comments: Recommend to trial miralax one capful dailystarting today. If GI symptoms improve, this suggests underlyingconstipation leading to overflow diarrhea. We will forward biopsies results to VERONICA Pryor when available. Pathology Results: A: COLON, DESCENDING, POLYP: 1. Tubular adenoma 2. Negative for high grade dysplasia 3. Per the colonoscopy report: a. Polyp size: 6 mm b. Resection: Complete c. Retrieval: Complete B: COLON, RANDOM, BIOPSY: 1. Focal active colitis (see comment) 2. Negative for microscopic and chronic colitis COMMENTS B. In patients with diarrhea or colitis symptoms this pattern ofinflammation may represent a mild/resolving acute type colitis ofinfectious etiology, medication related injury (typically NSAID's) or lesslikely Crohn's colitis. In the absence of symptoms or endoscopic findings,these changes are usually of no clinical significance. MICROSCOPIC A: Performed. Deeper tissue levels were examined. B: Performed SPECIAL STAINING/DEEPER A: Deeper Electronically signed by: Glory Mujica DO Interpreted at [facility] Digestive [facility], [address] [place] [address] Final Plan: Repeat colonoscopy in 1 year. We will attempt to contact you at appropriate intervals via U.[place]. mail. Wemay not be able to find you or contact you at that time, therefore youshould know that the responsibility for following our recommendation restswith you. If you don't hear from us at the time your procedure is due,please contact our office to schedule an appointment. If your contactinformation should change, please contact our office so that we can updateyour record. _Electronically signed by: Suresh Jones MD 05/25/2023 cc: Mc Hernández MD us Suresh Jones MD OTHER Final Resul t * LC HCV ANTIBODY RFX TO QUANT PCR (05/05/2023 11:37 AM CDT) HCV Ab Non Reactive Non Reactive 05/09/2023 11:06 PM CDT [facility] Blood BLOOD SPECIMEN / Unknown Venipuncture / Unknown 05/05/2023 11:37 AM CDT 05/05/2023 11:37 AM CDT Narrative [facility] - 05/09/2023 11:06 PM CDT Performed at: [address] [place] [address] [place] [address], [place], [place] [id number] Craft Demonstrator: Jamir Zayas MD, Phone: [phone] us Mc Hernández MD LABORATORY Final Resul t [facility] [address] [place] [id number], * LC HIV-1/O/2, 4TH GENERATION (05/05/2023 11:37 AM CDT) HIV Scr 4th Gen Non Reactive Non Reactive 05/10/2023 5:[address] [facility] Comment: HIV Negative HIV-1/HIV-2 antibodies and HIV-1 p24 antigen were NOT detected. There is no laboratory evidence of HIV infection. Blood BLOOD SPECIMEN / Unknown Venipuncture / Unknown 05/05/2023 11:37 AM CDT 05/05/2023 11:37 AM CDT Narrative [facility] - 05/10/2023 5:10 AM CDT Performed at: [address] [place] [id number] Craft Demonstrator: Jamir Zayas MD, Phone: [phone] us Mc Hernández MD LABORATORY Final Resul t [facility] [address] [place] [address], from Last 3 Months or Most Recently Relevant to Health Maintenance Insurance [employer] [facility] Care Teams Columnist/Commentator Relationship Specialty Start Date End Date Mc Hernán[place] [id number] [place] [address] PCP - General Family Practice 12/17/21
[2025-06-23 08:09] LABS: Albumin* 4.2 g/dL (3.3-5.0); Chloride* 107 mmol/L (96-114); Potassium* 3.8 mmol/L (3.6-5.1); Sodium* 139 mmol/L (135-149)
[2025-06-23 08:11] LABS: Blood Urea Nitrogen* 14 mg/dL (5-24); Creatinine* 0.9 mg/dL (0.5-1.5); Est. Creatinine Clearance* 90.58; Estimated Glomerular Filt Rate 105 ml/min
[2025-06-23 08:12] LABS: Alanine Aminotransferase* 37 U/L (4-50); Alkaline Phosphatase* 78 U/L (40-150); Anion Gap 7 mEq/L (7-15); Aspartate Amino Transferase* 27 U/L (12-35); Bilirubin Total* 0.8 mg/dL (0.1-1.5); Calcium* 9.2 mg/dL (8.4-10.6); Carbon Dioxide* 25 mmol/L (20-32); Glucose* 136 mg/dL (60-115); Total Protein* 7.0 g/dL (6.0-8.3)
[2025-06-23 08:20] LABS: D Dimer Quantitative* 0.11 ug/ml (0.00-0.50)
[2025-06-23 08:24] LABS: NT Pro B Type NatriureticPept* < 20 pg/mL (See Note)
[2025-06-23 09:46] LABS: Troponin, Point-of-Care* 0.00 ng/ml (0.01-0.04)
== END 2025-06-23 11:07 | disposition home or self-care (01) ==
PROVIDERS: Family Medicine; Emergency Provider Family Medicine
DX: R07.9 Chest pain, unspecified (principal)
CPT/HCPCS: 36415; 71046; 80053; 81001; 81003; 83690; 83880; 84484; 85025; 85379; 93005; 99284; 99285

== ENCOUNTER 2025-06-24 14:14 | Outpatient (CLI) | payer BC, SELFPAY ==
[2025-06-24 14:55] VITALS: BP 142/74; PULSE 95; RESP 16
--- NOTE | 2025-06-24 15:07 | W.PM.STED ---
Stress Test Note Date Date of test: 06/24/25 Providers Primary care provider: Not a Local Provider Stress test physician: Antonio Childers Stress Test Note Stress test ordered: Stress Echo Indication for test: Chest pain Results discussion: This very nice patient presents for the above test, after discussion the risks benefits and side effects of the test, patient would like to continue. Cardiac stress test medical history form is reviewed entirely. Pretest EKG shows normal sinus rhythm. Ventricular rate 72, BP 126/82. Standard Alonso protocol is done for 10 minutes, achieved a metabolic equivalent of 11.5 Mets, maximum heart rate was 155, which is 106% of the target, maximum blood pressure is 164 and 72. During this test he had no chest pain shortness of breath, test is terminated because of fulfillment of protocol and fatigue. During this test there some mild ST wave changes nondiagnostic of no ischemia. No dysrhythmias are noted Impression: Negative objective electrographic portion of stress echo, subjectively negative Follow up suggested: Await clinical read by Cardiology of echo portion, clinical correlation with this will be needed, I will contact patient if this is indeed positive. Patient is discharged from this facility with no restrictions, he will stop the aspirin. Patient understands this,
== END 2025-06-24 14:57 | disposition home or self-care (01) ==
LOC: STRESS 14:15
PROVIDERS: Visit Provider Family Medicine
DX: R07.9 Chest pain, unspecified (principal)
CPT/HCPCS: 93016; 93325; 93351